=== PATIENT | male | born 1960 | race Caucasian/White ===

== ENCOUNTER 2016-12-11 11:46 | Day surgery (SDC) | payer OTHER ==
[~2016-12-11] VITALS: Ht 190.5 cm; Wt 76.1 kg
[2016-12-11 12:54] VITALS: Ht 190.5 cm; Wt 76.1 kg
[2016-12-11] MEDS ORDERED: NO MEDS. (13:05)
[2016-12-11] MEDS ORDERED: PROPOFOL 20 ML ONE ×2 (13:18→15:14)
[2016-12-11 14:43] VITALS: BP 133/77; PULSE 58; RESP 18
[2016-12-11 15:40] VITALS: BP 113/79; PULSE 78; RESP 18
--- NOTE | 2016-12-11 16:21 | GILP ---
DATE OF PROCEDURE: NAME OF PROCEDURE: Colonoscopy. SURGEON: Hollie Michele MD PREOPERATIVE DIAGNOSIS: Positive occult blood in the stool. POSTOPERATIVE DIAGNOSES: 1. Colonoscopy all the way to the cecum. 2. Large internal hemorrhoids. 3. No colon neoplasm was identified. INDICATION FOR THE PROCEDURE: Mr. Duglas Escalera is a 56-year-old male patient who was noted to hav e positive occult blood in the stool. Patient has never had screening colonoscopy. The procedure and possible complications were well explained to the patient. The patient understood and consented to the procedure. DESCRIPTION OF PROCEDURE: Under the influence of anesthesia the colonoscope was carefully introduce d in the rectum and under direct vision it was advanced all the way to the cecum. FINDINGS: The patient had large internal hemorrhoids. No colon neoplasm was identified. He tolerated the procedure very well and there was no complication from the procedure. At the end o f the procedure he was awake with stable vital signs and he was discharged [facility] IMPRESSION: 1. Colonoscopy all the way to the cecum. 2. Positive occult blood secondary to large internal hemorrhoids. 3. No colon neoplasm was identified. PLAN: Next screening colonoscopy in 10 years. Dictated By: HOLLIE JUNIOR/MARTINEZ Conf#: [id number] DID#: [id number]
== END 2016-12-11 16:25 | disposition home or self-care (01) ==
LOC: GIL 11:46
PROVIDERS: ATTEND Internal Medicine Gastroenterology
DX: K92.1 Melena (principal); K64.8 Other hemorrhoids